=== PATIENT | female | born 1990 | race Caucasian/White ===

== ENCOUNTER 2017-09-21 14:24 | Emergency (ER) | payer OTHER ==
[2017-09-21 14:36] VITALS: BP 123/68; BMI 19.6
--- NOTE | 2017-09-21 14:46 | DR.EXTPAIN ---
HPI - Time seen Time seen: 14:20 - Complaint/Symptoms Chief Complaint Doctor Comments: Patient presents with complaint of twisted her left ankle falling on her side. She is and is 19 weeks gestation; heart tones of 148-150. - Nurses notes reviewed Nurses Notes Review: Yes - Mode of arrival Mode of Arrival: Ambulatory - Context History of: None - Associated signs and symptoms Associated Signs and Symptoms: Pain (left ankle) PMH - PMH Past Medical History: denies: Alzheimers, Anemia, Angina, Anxiety, Arthritis, Asthma, Cirrhosis, CHF, COPD, Coronary Artery Disease, CVA, Dementia, Depression , Diabetes, Dialysis, Migraines, Dyslipidemia, GERD, Gout, Headaches, Hypertension, Hyperthyroidism, Hypothyroidism, Kidney Stones, Liver Disease, MA , PUD, Renal Disease, Schizophrenia, Seizures, Sleep Apnea, SVT, Ventricular Tachycardia Unable to Obtain Due To: denies: Altered mental status - Social History Does patient currently use any type of tobacco product: No Have you used tobacco products in the last 12 months: No Type of Tobacco Use: None ROS - Review of Systems Constitutional: negative: Diaphoresis Eyes: No Symptoms Reported ENTM: No Symptoms Reported Respiratoy: No Symptoms Reported Cardiovascular: No Symptoms Reported Gastrointestinal/Abdominal: No Symptoms Reported Genitourinary: No Symptoms Reported Neurological: No Symptoms Reported Musculoskeletal: No Symptoms Reported Integumentary: No Symptoms Reported Hematologic/Lymphatic: No Symptoms Reported Endocrine: No Symptoms Reported Psychiatric: No Symptoms Reported All Other Systems: Reviewed and Negative PE - Vital Signs Vitals: Temperature 97.0 F Pulse Rate 88 Respiratory Rate 18 Blood Pressure 123/68 O2 Sat by Pulse Oximetry 100 - General Limitations: No Limitations General Appearance: Alert - Head Head Exam: Normal Inspection, Atraumatic - Eyes Eye exam: Normal Appearance, PERRL, EOMI - ENT ENT Exam: Normal Exam - Neck Neck Exam: Normal Inspection, Full ROM - Chest Chest Inspection: Normal Inspection - Respiratory Respiratory Exam: Normal Lung Sounds Bilat, Accessory Muscle Use Respiratory Exam: Bilateral Clear to Auscultation - Cardiovascular Cardiovascular Exam: Regular Rate, Normal Rhythm - Abdominal Exam Abdominal Exam: Normal Inspection, Normal Bowel Sounds Abdominal Tenderness: negative: RUQ, RLQ, LUQ, LLQ, Epigastrium, Suprapubic, Diffuse, Mild, Moderate, Severe, Other - Extremities Extremities Exam: Normal Inspection, Tenderness (left ankle). negative: Edema - Upper Extremities Shoulder Exam: Normal Inspection, Full ROM Arm Exam: Normal Inspection Elbow Exam: Normal Inspection Forearm Exam: Normal Inspection, Full ROM Hand Exam: Normal Inspection Neuromotor Exam: Normal Exam Neurosensory Exam: Normal Exam Hand Tendon Exam: negative: Flexor Digitorium Profundus (Location), Flexor Digitorium Superficialis (Location), Extensor Tendon (Location), Other Upper Ext. Vascular Exam: Capillary Refill (normal) - Lower Extremities Hip/Pelvis Exam: Normal Inspection Upper Leg Exam: Normal Inspection Knee Exam: Normal Inspection Lower Leg Exam: Normal Inspection Ankle Exam: Normal Inspection Foot/Toe Exam: Normal Inspection Neurovascular/Tendon Exam: Normal Capillary Refill Gait Exam: Observed and Normal - Back Back Exam: Normal Inspection, Full ROM - Neurological Neurological Exam: Alert, Oriented X3, CN II-XII Intact - Psychiatric Psychiatric Exam: Normal Affect, Normal Mood - Skin Skin Exam: Warm, Dry, Intact ROR - XRAY XRAY Interpreted by: Radiologist (Left Ankle: No acute fracture) - Diagnosis Discharge Problem: Left ankle sprain Qualifiers: Encounter type: initial encounter Involved ligament of ankle: tibiofibular ligament Qualified Code(s): S93.432A - Sprain of tibiofibular ligament of left ankle, initial encounter - Discharge Plan Condition: Stable - Follow ups/Referrals Follow ups/Referrals: BARBARA MACKEY [Primary Care Provider] - 3 days - Instructions
--- NOTE | 2017-09-21 15:00 | RAD ---
Examination: Left ankle, three views History: Twisted ankle Findings: No definite fracture, dislocation or joint space asymmetry. Impression: No acute injury identified. New Reported By:
== END 2017-09-21 15:21 | disposition home or self-care (01) ==
LOC: ER 14:35 → MERGE 14:35 → ER 15:21
DX: S93.432A Sprain of tibiofibular ligament of left ankle, initial encounter (principal); W19.XXXA Unspecified fall, initial encounter; Y92.9 Unspecified place or not applicable
CPT/HCPCS: 29540; 73610; 99282; 99284